=== PATIENT | female | born 1995 | race Two or more races ===

== ENCOUNTER → 2019-12-30 | Emergency (ER) | payer MEDICAID ==
[~2019-12-30] VITALS: Ht 157.5 cm; Wt 56.7 kg
[2019-12-30 11:26] VITALS: BP 107/77
== END | disposition left against medical advice (07) ==
LOC: ER 11:02
DX: R51 Headache (principal); Z53.21 Procedure and treatment not carried out due to patient leaving prior to being seen by health care provider